=== PATIENT | male | born 1970 | race Caucasian/White ===

== ENCOUNTER 2020-01-15 19:24 | Emergency (ER) | payer SELFPAY ==
[2020-01-15 19:41] VITALS: BP 141/84
[2020-01-15 20:26] LABS: ABSOLUTE EOSINOPHILS # (AUTO) 0.2 10^3/uL (0.0-0.6); ABSOLUTE LYMPHOCYTES (AUTO) 1.7 10^3/uL (0.5-4.7); ABSOLUTE MONOCYTES (AUTO) 0.5 10^3/uL (0.1-1.4); ABSOLUTE NEUT (AUTO) 3.1 10^3/uL (1.7-8.2); BASOPHILS % (AUTO) 0.5 % (0-2); EOSINOPHILS % (AUTO) 2.9 % (0-6); HEMATOCRIT 42.2 % (37.9-51.0); HEMOGLOBIN 14.7 g/dL (13.5-17.0); LYMPHOCYTES % (AUTO) 30.7 % (13-45); MEAN CORPUSCULAR HEMOGLOBIN 32.6 pg (27.0-33.4); MEAN CORPUSCULAR HGB CONC 34.9 g/dL (32.0-36.0); MEAN CORPUSCULAR VOLUME 94 fl (80-97); MONOCYTES % (AUTO) 9.3 % (3-13); RED BLOOD COUNT 4.51 10^6/uL (4.35-5.55); RED CELL DISTRIBUTION WIDTH 14.8 % (11.5-14.0); SEGMENTED NEUTROPHILS % (AUTO) 56.6 % (42-78); TOTAL CELLS COUNTED % (AUTO) 100 %; WHITE BLOOD COUNT 5.5 10^3/uL (4.0-10.5)
[2020-01-15 20:43] LABS: ALBUMIN 4.5 g/dL (3.5-5.0); ALKALINE PHOSPHATASE 113 U/L (38-126); ANION GAP 11 (5-19); ASPARTATE AMINO TRANSFERASE 48 U/L (17-59); BILIRUBIN,TOTAL 0.5 mg/dL (0.2-1.3); BLOOD UREA NITROGEN 9 mg/dL (7-20); CALCIUM 9.3 mg/dL (8.4-10.2); CARBON DIOXIDE 24 mmol/L (22-30); CHLORIDE 102 mmol/L (98-107); CREATINE KINASE 219 U/L (55-170); GLUCOSE 368 mg/dL (75-110); POTASSIUM 4.1 mmol/L (3.6-5.0); TOTAL PROTEIN 7.6 g/dL (6.3-8.2)
--- NOTE | 2020-01-15 20:49 | EKG REPORT ---
SEVERITY:- BORDERLINE ECG - SINUS TACHYCARDIA PROBABLE LEFT ATRIAL ABNORMALITY : Confirmed by: Janiya Arango 15-Jan-2020 20:48:07
[2020-01-15 20:53] LABS: PLATELET COUNT 90 10^3/uL (150-450)
--- NOTE | 2020-01-15 20:53 | RADIOLOGY REPORT (SQ) ---
CLINICAL INDICATION: chest pain. TECHNIQUE: A single portable AP view was obtained of the chest at 2030 hours. Additional repeat image COMPARISON: None. FINDINGS: The cardiomediastinal silhouette is normal. The lungs are grossly clear. No evidence of effusion or pneumothorax. Old posttraumatic change. IMPRESSION: No evidence of active intrathoracic disease.
[2020-01-15 20:55] LABS: CREATINE KINASE MB 4.75 ng/mL (<4.55)
[2020-01-15 20:57] LABS: TROPONIN I < 0.012 ng/mL
[2020-01-15] MEDS ORDERED: NORMAL SALINE 1000 ML 1,000 ML IV ONE (22:40)
--- NOTE | 2020-01-15 22:58 | ER Document Report ---
ED General - General Chief Complaint: Weakness Stated Complaint: NAUSEA/HEART FLUTTERING Time Seen by Provider: 01/15/20 21:34 Notes: 49-year-old male presenting today with generalized weakness and muscle aches for 1 month. States he excessively fatigued and stressed. States he has had a productive cough for about a week and a half. Has type 2 diabetes and he does not take any medications for this. Also notes he has had some left-sided chest discomfort that radiates down his arm. States that he broke a posterior upper left rib one month ago. Has concerns as he feels his heart is fluttering. No fevers, chills or headaches. No abdominal pain. Has no primary care or insurance. Believes his symptoms are related to his sugar levels. Has hx of htn and diabetes. - Related Data Allergies/Adverse Reactions: No Known Allergies Allergy (Unverified 01/15/20 21:14) Past Medical History - Social History Smoking Status: Current Every Day Smoker Chew tobacco use (# tins/day): No Frequency of alcohol use: Heavy Drug Abuse: Marijuana Family History: Reviewed & Not Pertinent Patient has homicidal ideation: No - Past Medical History Cardiac Medical History: Reports: Hx Hypertension Neurological Medical History: Reports: Hx Seizures Endocrine Medical History: Reports: Hx Diabetes Mellitus Type 1 Past Surgical History: Reports: Hx Appendectomy Review of Systems - Review of Systems Constitutional: See HPI EENT: No symptoms reported Cardiovascular: See HPI Respiratory: See HPI Gastrointestinal: See HPI Genitourinary: No symptoms reported Musculoskeletal: No symptoms reported Physical Exam - Vital signs Vitals: Temp Pulse Resp BP Pulse Ox 98.3 F 104 H 18 141/84 H 91 L 01/15/20 19:37 01/15/20 19:37 01/15/20 19:37 01/15/20 19:37 01/15/20 19:37 Interpretation: Tachycardic - Notes Notes: Was informed by the nurse that patient is not interested in leaving [facility]. I discussed with patient at length my recommendations for continued medical work- up based on his symptoms and that the initial test did not provide good insight as to the cause of his symptoms. Course - Re-evaluation Re-evalutation: 01/15/20 22:58 Was informed by the nurse that patient now wants to leave [facility]. I had an in- depth conversation with the patient that we do not know the cause of his weakness, muscle aches, cough and chest pain based upon the preliminary labs and studies performed and that I would recommend and do advised that he has an additional work-up so that we can figure out the cause of his symptoms. Patient attributes his symptoms to stress or his sugar levels. Patient states that he does not want to be stuck by any needles or have any IVs and does not want to stay overnight in the hospital. States that he will just get a Gatorade to see if that will help with the symptoms. Advised against this due to his sugar levels. Discussed the risks of leaving AMA as we do not have a full work-up as to the cause of his symptoms. Patient still desires to leave AMA. Recommend patient follow-up with his primary care. Discussed him schedule an appointment with [facility] for [facility] and that he can return to the emergency department if he develops worsening or new symptoms. Patient was also referred for case management. Will have patient sign paperwork for AMA. - Vital Signs Vital signs: Temp Pulse Resp BP Pulse Ox 98.3 F 104 H 18 141/84 H 91 L 01/15/20 19:46 01/15/20 19:37 01/15/20 19:37 01/15/20 19:37 01/15/20 19:37 - Laboratory Result Diagrams: 01/15/20 20:10 01/15/20 20:10 Laboratory results interpreted by me: 01/15/20 01/15/20 01/15/20 20:10 20:10 20:10 RDW 14.8 H Plt Count 90 L Sodium 136.5 L Glucose 368 H Creatine Kinase 219 H CK-MB (CK-2) 4.75 H Discharge - Discharge Clinical Impression: Weakness Chest pain Qualifiers: Chest pain type: unspecified Qualified Code(s): R07.9 - Chest pain, unspecified Disposition: AGAINST MEDICAL ADVICE Additional Instructions: You have not completed your medical work up. We are uncertain as to the cause of your symptoms and additional work up is recommended. Please follow up with a pcm or with the [facility]. You may return to the ER if you have worsening symptoms or development of new symptoms.
[2020-01-15 23:15] LABS: FREE T3 3.99 pg/mL (2.77-5.27)
[2020-01-15 23:29] LABS: THYROID STIMULATING HORMONE 1.13 uIU/mL (0.47-4.68)
== END 2020-01-15 23:02 | disposition left against medical advice (07) ==
LOC: ER 19:24
DX: R53.1 Weakness (principal); R07.9 Chest pain, unspecified; R11.0 Nausea; M79.10 Myalgia, unspecified site; R53.83 Other fatigue; F17.200 Nicotine dependence, unspecified, uncomplicated; I10 Essential (primary) hypertension; E10.9 Type 1 diabetes mellitus without complications
CPT/HCPCS: 36415; 71045; 80053; 82550; 82553; 83735; 84443; 84481; 84484; 85025; 93005; 93010; 99285

== ENCOUNTER 2020-02-24 09:42 | Emergency (ER) | payer SELFPAY ==
[2020-02-24] MEDS ORDERED: ACETAMINOPHEN 325 MG TABLET PO ONE ×2 (10:24→18:53)
[2020-02-24 10:30] LABS: HEMATOCRIT 31.5 % (37.9-51.0); MEAN CORPUSCULAR HEMOGLOBIN 32.7 pg (27.0-33.4); MEAN CORPUSCULAR HGB CONC 35.1 g/dL (32.0-36.0); MEAN CORPUSCULAR VOLUME 93 fl (80-97); RED BLOOD COUNT 3.38 10^6/uL (4.35-5.55); RED CELL DISTRIBUTION WIDTH 13.7 % (11.5-14.0); WHITE BLOOD COUNT 10.3 10^3/uL (4.0-10.5)
[2020-02-24 10:46] LABS: ALBUMIN 3.5 g/dL (3.5-5.0); ALKALINE PHOSPHATASE 83 U/L (38-126); ANION GAP 15 (5-19); ASPARTATE AMINO TRANSFERASE 45 U/L (17-59); BILIRUBIN,DIRECT 0.2 mg/dL (0.0-0.4); BILIRUBIN,TOTAL 1.1 mg/dL (0.2-1.3); BLOOD UREA NITROGEN 12 mg/dL (7-20); CALCIUM 8.6 mg/dL (8.4-10.2); CARBON DIOXIDE 18 mmol/L (22-30); CHLORIDE 88 mmol/L (98-107); GLUCOSE 378 mg/dL (75-110); POTASSIUM 4.1 mmol/L (3.6-5.0); TOTAL PROTEIN 6.6 g/dL (6.3-8.2)
[2020-02-24 10:51] LABS: PLATELET COUNT 82 10^3/uL (150-450)
[2020-02-24 10:54] LABS: ABSOLUTE MONOCYTES # (MANUAL) 1.9 10^3/uL (0.1-1.4); BAND NEUTROPHILS % (MANUAL) 2 % (3-5); BASOPHILS % (MANUAL) 0 % (0-2); EOSINOPHILS % (MANUAL) 0 % (0-6); LYMPHOCYTES % (MANUAL) 0 % (13-45); MONOCYTES % (MANUAL) 18 % (3-13); PLATELET COMMENT DECREASED; RBC MORPHOLOGY COMMENT NORMO-CYTIC/CHROMIC; SEGMENTED NEUTROPHILS % (MAN) 80 % (42-78); TOTAL CELLS COUNTED 100
[2020-02-24] MEDS ORDERED: NORMAL SALINE 1000 ML 1,000 ML IV ONE ×3 (11:00→19:19)
[2020-02-24 11:02] LABS: APPEARANCE,URINE CLEAR; BILIRUBIN,URINE NEGATIVE (NEGATIVE); COLOR,URINE YELLOW; GLUCOSE, URINE >=500 mg/dL (NEGATIVE); KETONES,URINE 20 mg/dL (NEGATIVE); LEUKOCYTE ESTERASE,URINE NEGATIVE (NEGATIVE); NITRITE,URINE NEGATIVE (NEGATIVE); PROTEIN,URINE 100 mg/dL (NEGATIVE); URINE SPECIFIC GRAVITY 1.027
--- NOTE | 2020-02-24 14:04 | ER Document Report ---
ED General - General Chief Complaint: Leg Pain Stated Complaint: RIGHT LEG PAIN Time Seen by Provider: 02/24/20 12:59 Primary Care Provider: [facility] [Provider Group] - Follow up tomorrow [facility] [Provider Group] - Follow up as needed [facility] [Provider Group] - Follow up as needed [facility] [place] [facility] [Provider Group] - Follow up as needed [facility] [Provider Group] - Follow up tomorrow Mode of Arrival: Wheelchair Information source: Patient Notes: Patient presents after stepping in a hole 3 days ago. Patient complains of right ankle and right lower leg pain since the fall. Patient also states that he was jogging at nighttime 10 days ago and tripped over a trailer injuring his left shoulder and lower back. Patient states he had been drinking alcohol during that fall. TRAVEL OUTSIDE OF THE [place] IN LAST 30 DAYS: No - HPI Onset: Other - 3 days ago stepped in a hole, 10 days ago fell in yard Onset/Duration: Persistent Quality of pain: Achy Pain Level: 4 Associated symptoms: Leg swelling. denies: Chest pain, Nonproductive cough, Productive cough, Nausea, Shortness of breath Exacerbated by: Movement, Walking Relieved by: Denies Similar symptoms previously: No Recently seen / treated by doctor: No - Related Data Allergies/Adverse Reactions: No Known Allergies Allergy (Unverified 01/24/20 15:03) Past Medical History - General Information source: Patient - Social History Smoking Status: Former Smoker Frequency of alcohol use: Occasional Drug Abuse: Marijuana Occupation: None Lives with: Family Family History: Reviewed & Not Pertinent - Past Medical History Cardiac Medical History: Reports: Hx Hypertension Neurological Medical History: Reports: Hx Seizures Endocrine Medical History: Reports: Hx Diabetes Mellitus Type 2 Renal/ Medical History: Denies: Hx Peritoneal Dialysis Past Surgical History: Reports: Hx Appendectomy Review of Systems - Review of Systems Constitutional: No symptoms reported. denies: Recent illness EENT: No symptoms reported Cardiovascular: No symptoms reported. denies: Chest pain Respiratory: No symptoms reported. denies: Cough, Short of breath Gastrointestinal: No symptoms reported. denies: Abdominal pain, Diarrhea, Nausea, Vomiting Genitourinary: No symptoms reported. denies: Dysuria Male Genitourinary: No symptoms reported Musculoskeletal: Back pain, Joint pain - Right ankle, left shoulder Skin: Change in color - Bruise to right leg Hematologic/Lymphatic: No symptoms reported Neurological/Psychological: No symptoms reported Physical Exam - Vital signs Vitals: Temp Pulse Resp BP Pulse Ox 101 F H 124 H 20 152/90 H 95 02/24/20 09:48 02/24/20 09:48 02/24/20 09:48 02/24/20 09:48 02/24/20 09:48 - General General appearance: Appears well, Alert In distress: None - HEENT Head: Normocephalic, Atraumatic Eyes: Normal Conjunctiva: Normal Nasal: Normal Mouth/Lips: Normal Mucous membranes: Normal Neck: Normal, Supple. No: Lymphadenopathy - Respiratory Respiratory status: No respiratory distress Chest status: Nontender Breath sounds: Normal. No: Rales, Rhonchi, Stridor, Wheezing Chest palpation: Normal - Cardiovascular Rhythm: Regular Heart sounds: S1 appreciated, S2 appreciated Murmur: No - Abdominal Inspection: Normal Distension: No distension Bowel sounds: Normal Tenderness: Nontender Organomegaly: No organomegaly - Back Back: Tender - Lower lumbar paraspinal tenderness. No: Deformity/step-off, CVA tenderness, Vertebra tenderness - Extremities General upper extremity: Tender - Left shoulder joint tenderness General lower extremity: Tender - Right ankle and lower leg pain Shoulder: Tender - Left shoulder. No: Deformity, Dislocation, Ecchymosis, Instability, Laceration, Limited ROM Arm: Normal, Nontender Elbow: Normal, Nontender Forearm: Normal, Nontender Wrist: Normal, Nontender Knee: Normal, Nontender Ankle: Tender - Tenderness to bilateral malleolar area of right ankle with 3+ edema, Ecchymosis, Edema, Limited ROM, Unable to bear weight. No: Laceration Foot: Nontender, Edema - Neurological Neuro grossly intact: Yes Cognition: Normal Sven Coma Scale Eye Opening: Spontaneous [place] Coma Scale Verbal: Oriented Sven Coma Scale Motor: Obeys Commands [place] Coma Scale Total: 15 - Psychological Associated symptoms: Normal affect, Normal mood - Skin Skin Temperature: Warm Skin Moisture: Dry Skin Color: Ecchymosis - Right lower leg right ankle Course - Re-evaluation Re-evalutation: 02/24/20 14:03 Review of patient's initial vitals demonstrates fever and tachycardia, patient was given Tylenol per nursing staff. 02/24/20 18:44 Patient with muscular skeletal complaints with only chronic degenerative changes noted to the lumbar spine and left shoulder. Patient without any fracture or dislocation. Patient does have some erythema to the right ankle joint with some swelling. Patient without any leukocytosis. Patient does have diabetes and has been noncompliant with treatment. Patient does not appear to be acidotic at this time. Dr. Corral consulted and evaluated patient. Dr. Corral feels that patient has a cellulitis to the right ankle and does not have concerns about any septic arthritis at this time. Advises giving patient a dose of Rocephin as well as vancomycin IV and discharging patient home on Keflex and Bactrim. Agrees with plan to COVID test patient prior to discharge. 02/24/20 21:12 Patient reports feeling better at this time. Vital signs improved. Patient nontoxic in appearance. Discussed importance of eating a diabetic diet and being compliant with his medications. Discussed worsening signs or symptoms lázaro t patient should return immediately for. The patient was evaluated during the global Covid 19 pandemic, and that diagnosis was suspected/considered upon their initial presentation. Their evaluation, treatment and testing was consistent with current guidelines for patients who present with complaints or symptoms that may be related to Covid 19. - Vital Signs Vital signs: Temp Pulse Resp BP Pulse Ox 98.3 F 111 H 20 146/69 H 97 02/24/20 18:43 02/24/20 18:43 02/24/20 18:43 02/24/20 18:43 02/24/20 18:43 - Laboratory Result Diagrams: 02/24/20 10:03 02/24/20 10:03 Laboratory results interpreted by me: 02/24/20 02/24/20 02/24/20 10:03 10:03 10:35 RBC 3.38 L Hgb 11.0 L Hct 31.5 L Plt Count 82 L Seg Neuts % (Manual) 80 H Band Neutrophils % 2 L Lymphocytes % (Manual) 0 L Monocytes % (Manual) 18 H Abs Neuts (Manual) 8.4 H Abs Lymphs (Manual) 0.0 L Abs Monocytes (Manual) 1.9 H ESR VBG pCO2 VBG HCO3 Sodium 121.2 L Chloride 88 L Carbon Dioxide 18 L Glucose 378 H POC Glucose Uric Acid C-Reactive Protein Urine Protein 100 H Urine Glucose (UA) >=500 H Urine Ketones 20 H Urine Blood MODERATE H Urine Urobilinogen 2.0 H 02/24/20 02/24/20 02/24/20 14:28 17:00 17:00 RBC Hgb Hct Plt Count Seg Neuts % (Manual) Band Neutrophils % Lymphocytes % (Manual) Monocytes % (Manual) Abs Neuts (Manual) Abs Lymphs (Manual) Abs Monocytes (Manual) ESR 115 H VBG pCO2 30.2 L VBG HCO3 18.2 L Sodium Chloride Carbon Dioxide Glucose POC Glucose Uric Acid 1.6 L C-Reactive Protein 260.7 H Urine Protein Urine Glucose (UA) Urine Ketones Urine Blood Urine Urobilinogen 02/24/20 18:48 RBC Hgb Hct Plt Count Seg Neuts % (Manual) Band Neutrophils % Lymphocytes % (Manual) Monocytes % (Manual) Abs Neuts (Manual) Abs Lymphs (Manual) Abs Monocytes (Manual) ESR VBG pCO2 VBG HCO3 Sodium Chloride Carbon Dioxide Glucose POC Glucose 213 H Uric Acid C-Reactive Protein Urine Protein Urine Glucose (UA) Urine Ketones Urine Blood Urine Urobilinogen 02/24/20 18:47 Labs- All tests 24 hr 02/24/20 02/24/20 02/24/20 10:03 10:03 10:03 WBC 10.3 RBC 3.38 L Hgb 11.0 L Hct 31.5 L MCV 93 MCH 32.7 MCHC 35.1 RDW 13.7 Plt Count 82 L Lymph % (Auto) Not Reportable [place] % (Auto) Not Reportable Eos % (Auto) Not Reportable Baso % (Auto) Not Reportable Absolute Neuts (auto) Not Reportable Absolute Lymphs (auto) Not Reportable Absolute Monos (auto) Not Reportable Absolute Eos (auto) Not Reportable Absolute Basos (auto) Not Reportable Total Counted 100 Seg Neutrophils % Not Reportable Seg Neuts % (Manual) 80 H Band Neutrophils % 2 L Lymphocytes % (Manual) 0 L Monocytes % (Manual) 18 H Eosinophils % (Manual) 0 Basophils % (Manual) 0 Abs Neuts (Manual) 8.4 H Abs Lymphs (Manual) 0.0 L Abs Monocytes (Manual) 1.9 H Absolute Eos (Manual) 0.0 Abs Basophils (Manual) 0.0 Platelet Comment DECREASED RBC Morph Comment NORMO-CYTIC/CHROMIC ESR PT 14.6 INR 1.13 VBG pH VBG pCO2 VBG HCO3 VBG Base Excess Sodium 121.2 L Potassium 4.1 Chloride 88 L Carbon Dioxide 18 L Anion Gap 15 BUN 12 Creatinine 0.57 Est GFR ( Amer) > 60 Est GFR (MDRD) Non-Af > 60 Glucose 378 H Lactic Acid Uric Acid Calcium 8.6 Total Bilirubin 1.1 Direct Bilirubin 0.2 Neonat Total Bilirubin Not Reportable Neonat Direct Bilirubin Not Reportable Neonat Indirect Bili Not Reportable AST 45 ALT 41 Alkaline Phosphatase 83 C-Reactive Protein Total Protein 6.6 Albumin 3.5 Urine Color Urine Appearance Urine pH Ur Specific [place] Urine Protein Urine Glucose (UA) Urine Ketones Urine Blood Urine Nitrite Urine Bilirubin Urine Urobilinogen Ur Leukocyte Esterase Urine WBC (Auto) Urine RBC (Auto) U Hyaline Cast (Auto) Squamous Epi Cells Auto Urine Mucus (Auto) Urine Ascorbic Acid 02/24/20 02/24/20 02/24/20 10:35 13:56 13:56 WBC RBC Hgb Hct MCV MCH MCHC RDW Plt Count Lymph % (Auto) [place] % (Auto) Eos % (Auto) Baso % (Auto) Absolute Neuts (auto) Absolute Lymphs (auto) Absolute Monos (auto) Absolute Eos (auto) Absolute Basos (auto) Total Counted Seg Neutrophils % Seg Neuts % (Manual) Band Neutrophils % Lymphocytes % (Manual) Monocytes % (Manual) Eosinophils % (Manual) Basophils % (Manual) Abs Neuts (Manual) Abs Lymphs (Manual) Abs Monocytes (Manual) Absolute Eos (Manual) Abs Basophils (Manual) Platelet Comment RBC Morph Comment ESR PT INR VBG pH Cancelled VBG pCO2 Cancelled VBG HCO3 Cancelled VBG Base Excess Cancelled Sodium Potassium Chloride Carbon Dioxide Anion Gap BUN Creatinine Est GFR ( Amer) Est GFR (MDRD) Non-Af Glucose Lactic Acid 1.6 Uric Acid Calcium Total Bilirubin Direct Bilirubin Neonat Total Bilirubin Neonat Direct Bilirubin Neonat Indirect Bili AST ALT Alkaline Phosphatase C-Reactive Protein Total Protein Albumin Urine Color YELLOW Urine Appearance CLEAR Urine pH 6.0 Ur Specific [place] 1.027 Urine Protein 100 H Urine Glucose (UA) >=500 H Urine Ketones 20 H Urine Blood MODERATE H Urine Nitrite NEGATIVE Urine Bilirubin NEGATIVE Urine Urobilinogen 2.0 H Ur Leukocyte Esterase NEGATIVE Urine WBC (Auto) 1 Urine RBC (Auto) 1 U Hyaline Cast (Auto) 1 Squamous Epi Cells Auto <1 Urine Mucus (Auto) RARE Urine Ascorbic Acid NEGATIVE 02/24/20 02/24/20 02/24/20 14:28 17:00 17:00 WBC RBC Hgb Hct MCV MCH MCHC RDW Plt Count Lymph % (Auto) [place] % (Auto) Eos % (Auto) Baso % (Auto) Absolute Neuts (auto) Absolute Lymphs (auto) Absolute Monos (auto) Absolute Eos (auto) Absolute Basos (auto) Total Counted Seg Neutrophils % Seg Neuts % (Manual) Band Neutrophils % Lymphocytes % (Manual) Monocytes % (Manual) Eosinophils % (Manual) Basophils % (Manual) Abs Neuts (Manual) Abs Lymphs (Manual) Abs Monocytes (Manual) Absolute Eos (Manual) Abs Basophils (Manual) Platelet Comment RBC Morph Comment ESR 115 H PT INR VBG pH 7.40 VBG pCO2 30.2 L VBG HCO3 18.2 L VBG Base Excess -5.6 Sodium Potassium Chloride Carbon Dioxide Anion Gap BUN Creatinine Est GFR ( Amer) Est GFR (MDRD) Non-Af Glucose Lactic Acid 1.0 Uric Acid Calcium Total Bilirubin Direct Bilirubin Neonat Total Bilirubin Neonat Direct Bilirubin Neonat Indirect Bili AST ALT Alkaline Phosphatase C-Reactive Protein Total Protein Albumin Urine Color Urine Appearance Urine pH Ur Specific [place] Urine Protein Urine Glucose (UA) Urine Ketones Urine Blood Urine Nitrite Urine Bilirubin Urine Urobilinogen Ur Leukocyte Esterase Urine WBC (Auto) Urine RBC (Auto) U Hyaline Cast (Auto) Squamous Epi Cells Auto Urine Mucus (Auto) Urine Ascorbic Acid 02/24/20 17:00 WBC RBC Hgb Hct MCV MCH MCHC RDW Plt Count Lymph % (Auto) [place] % (Auto) Eos % (Auto) Baso % (Auto) Absolute Neuts (auto) Absolute Lymphs (auto) Absolute Monos (auto) Absolute Eos (auto) Absolute Basos (auto) Total Counted Seg Neutrophils % Seg Neuts % (Manual) Band Neutrophils % Lymphocytes % (Manual) Monocytes % (Manual) Eosinophils % (Manual) Basophils % (Manual) Abs Neuts (Manual) Abs Lymphs (Manual) Abs Monocytes (Manual) Absolute Eos (Manual) Abs Basophils (Manual) Platelet Comment RBC Morph Comment ESR PT INR VBG pH VBG pCO2 VBG HCO3 VBG Base Excess Sodium Potassium Chloride Carbon Dioxide Anion Gap BUN Creatinine Est GFR ( Amer) Est GFR (MDRD) Non-Af Glucose Lactic Acid Uric Acid 1.6 L Calcium Total Bilirubin Direct Bilirubin Neonat Total Bilirubin Neonat Direct Bilirubin Neonat Indirect Bili AST ALT Alkaline Phosphatase C-Reactive Protein 260.7 H Total Protein Albumin Urine Color Urine Appearance Urine pH Ur Specific [place] Urine Protein Urine Glucose (UA) Urine Ketones Urine Blood Urine Nitrite Urine Bilirubin Urine Urobilinogen Ur Leukocyte Esterase Urine WBC (Auto) Urine RBC (Auto) U Hyaline Cast (Auto) Squamous Epi Cells Auto Urine Mucus (Auto) Urine Ascorbic Acid - Diagnostic Test Radiology reviewed: Image reviewed, Reports reviewed Discharge - Discharge Clinical Impression: Encounter for screening laboratory testing for COVID-19 virus Diabetes Qualifiers: Diabetes mellitus type: type 2 Diabetes mellitus assistant terminal manager insulin use: without fpc use Diabetes mellitus complication status: with other specified complication Qualified Code(s): E11.69 - Type 2 diabetes mellitus with other specified complication Cellulitis Qualifiers: Site of cellulitis: extremity Site of cellulitis of extremity: lower extremity Laterality: right Qualified Code(s): L03.115 - Cellulitis of right lower limb Fever Qualifiers: Fever type: unspecified Qualified Code(s): R50.9 - Fever, unspecified Low back pain Qualifiers: Chronicity: unspecified Back pain laterality: bilateral Sciatica presence: without sciatica Qualified Code(s): M54.5 - Low back pain Left shoulder pain Qualifiers: Chronicity: chronic Qualified Code(s): M25.512 - Pain in left shoulder Right ankle sprain Qualifiers: Encounter type: initial encounter Involved ligament of ankle: unspecified ligament Qualified Code(s): S93.401A - Sprain of unspecified ligament of right ankle, initial encounter Condition: Stable Disposition: HOME, SELF-CARE Instructions: COVID-19 Guidance for Persons Under Investigation, Ankle Stirrup Splint ([facility]), Cellulitis ([facility]), Cephalexin ([facility]), Use of Crutches ([facility]), Diabetes ([facility]), Fever ([facility]), Low Back Pain ([facility]), Shoulder Injury ([facility]), Sprained Ankle ([facility]), Trimethoprim-Sulfa ([facility]) Additional Instructions: Return immediately for any new or worsening symptoms: Worsening pain, persistent fever, lack of improvement or any concerning new symptoms Followup with your primary care provider, call tomorrow to make a followup appointment Follow-up with orthopedics for further evaluation, call tomorrow to make an appointment Home quarantine as per instructions Prescriptions: Sulfamethoxazole/Trimethoprim [Bactrim Ds Tablet] 1 each PO BID #20 tablet Metformin HCl [Glucophage 500 mg Tablet] 500 mg PO BID #60 tablet Cephalexin Monohydrate [Keflex 500 mg Capsule] 500 mg PO Q6H 7 Days #28 capsule Hydrocodone/Acetaminophen [[place] 5-325 mg Tablet] 1 tab PO Q6 PRN #6 tablet PRN Reason: Walker [Ultra-Light Rollator] 1 each MC DAILY PRN #1 each PRN Reason: Referrals: [facility] [Provider Group] - Follow up tomorrow [facility] [place] [Provider Group] - Follow up as needed [facility] [Provider Group] - Follow up tomorrow [facility] [Provider Group] - Follow up as needed [facility] [Provider Group] - Follow up as needed
[2020-02-24 14:24] LABS: INTERNATIONAL RATION (INR) 1.13; PROTHROMBIN TIME 14.6 SEC (11.4-15.4)
[2020-02-24 14:37] LABS: VENOUS BLOOD BASE EXCESS -5.6 mmol/L; VENOUS BLOOD HCO3 18.2 mmol/L (20-32); VENOUS BLOOD PCO2 30.2 mmHg (35-63); VENOUS BLOOD PH 7.4 (7.30-7.42)
--- NOTE | 2020-02-24 15:22 | RADIOLOGY REPORT (SQ) ---
EXAM DESCRIPTION: CHEST SINGLE VIEW IMAGES COMPLETED DATE/TIME: 02/24/2020 3:07 pm REASON FOR STUDY: fall, fever COMPARISON: 01/15/2020 EXAM PARAMETERS: NUMBER OF VIEWS: One view. TECHNIQUE: Single frontal radiographic view of the chest acquired. RADIATION DOSE: NA LIMITATIONS: None. FINDINGS: LUNGS AND PLEURA: No opacities, masses or pneumothorax. No pleural effusion. MEDIASTINUM AND HILAR STRUCTURES: No masses. Contour normal. HEART AND VASCULAR STRUCTURES: Heart normal in size. Normal vasculature. BONES: No acute findings. HARDWARE: None in the chest. OTHER: No other significant finding. IMPRESSION: NO ACUTE RADIOGRAPHIC FINDING IN THE CHEST. TECHNICAL DOCUMENTATION: JOB ID: [id number] 2010 [employer]- All Rights Reserved Reading location - IP/workstation name: [email or web address]
--- NOTE | 2020-02-24 15:23 | RADIOLOGY REPORT (SQ) ---
EXAM DESCRIPTION: FOOT RIGHT COMPLETE IMAGES COMPLETED DATE/TIME: 02/24/2020 3:07 pm REASON FOR STUDY: fall COMPARISON: None. NUMBER OF VIEWS: Three views. TECHNIQUE: AP, lateral and oblique radiographic images acquired of the right foot. LIMITATIONS: None. FINDINGS: MINERALIZATION: Normal. BONES: No acute fracture or dislocation. No worrisome bone lesions. JOINTS: No effusions. SOFT TISSUES: No soft tissue swelling. No foreign body. OTHER: No other significant finding. IMPRESSION: NEGATIVE STUDY OF THE RIGHT FOOT. NO RADIOGRAPHIC EVIDENCE OF ACUTE INJURY. TECHNICAL DOCUMENTATION: JOB ID: [id number] 2010 [employer]- All Rights Reserved Reading location - IP/workstation name: [email or web address]
--- NOTE | 2020-02-24 15:23 | RADIOLOGY REPORT (SQ) ---
EXAM DESCRIPTION: TIBIA FIBULA RIGHT IMAGES COMPLETED DATE/TIME: 02/24/2020 3:07 pm REASON FOR STUDY: fall COMPARISON: None. NUMBER OF VIEWS: Two views. TECHNIQUE: Two radiographic images acquired of the right tibia and fibula to include the knee and an kle in at least one projection. LIMITATIONS: None. FINDINGS: MINERALIZATION: Normal. BONES: No acute fracture or dislocation. No worrisome bone lesions. SOFT TISSUES: No obvious swelling or foreign body. OTHER: No other significant finding. IMPRESSION: NEGATIVE STUDY OF THE RIGHT TIBIA AND FIBULA. NO RADIOGRAPHIC EVIDENCE OF ACUTE INJURY. TECHNICAL DOCUMENTATION: JOB ID: [id number] 2010 [employer]- All Rights Reserved Reading location - IP/workstation name: [email or web address]
--- NOTE | 2020-02-24 15:25 | RADIOLOGY REPORT (SQ) ---
EXAM DESCRIPTION: ANKLE RIGHT COMPLETE IMAGES COMPLETED DATE/TIME: 02/24/2020 3:07 pm REASON FOR STUDY: fall COMPARISON: None. NUMBER OF VIEWS: Three views. TECHNIQUE: AP, lateral, and oblique radiographic images acquired of the right ankle. LIMITATIONS: None. FINDINGS: MINERALIZATION: Normal. BONES: No acute fracture or dislocation. No worrisome bone lesions. JOINTS: No effusions. SOFT TISSUES: Mild soft tissue swelling. OTHER: No other significant finding. IMPRESSION: Mild soft tissue swelling. No fracture. TECHNICAL DOCUMENTATION: JOB ID: [id number] 2010 [employer]- All Rights Reserved Reading location - IP/workstation name: [email or web address]
--- NOTE | 2020-02-24 15:26 | RADIOLOGY REPORT (SQ) ---
EXAM DESCRIPTION: L SPINE WHOLE IMAGES COMPLETED DATE/TIME: 02/24/2020 3:07 pm REASON FOR STUDY: fall COMPARISON: None. NUMBER OF VIEWS: Five views including obliques. TECHNIQUE: AP, lateral, oblique, and sacral radiographic images acquired of the lumbar spine. LIMITATIONS: None. FINDINGS: MINERALIZATION: Normal. SEGMENTATION: Normal. No transitional anatomy. ALIGNMENT: Normal. VERTEBRAE: Maintained height. No fracture or worrisome bone lesion. DISCS: There is narrowing of the L4-5 disc space. Marginal osteophytes in L3 and L4. POSTERIOR ELEMENTS: Pedicles and facets are intact. No pars defect or posterior arch defects. HARDWARE: None in the spine. PARASPINAL SOFT TISSUES: Normal. PELVIS: Intact as visualized. No fractures or worrisome bone lesions. SI joints intact. OTHER: No other significant finding. IMPRESSION: Degenerative disc disease. Mild spondylosis. TECHNICAL DOCUMENTATION: JOB ID: [id number] 2010 [employer]- All Rights Reserved Reading location - IP/workstation name: [email or web address]
--- NOTE | 2020-02-24 15:28 | RADIOLOGY REPORT (SQ) ---
EXAM DESCRIPTION: SHOULDER LEFT 2 OR MORE VIEWS IMAGES COMPLETED DATE/TIME: 02/24/2020 3:07 pm REASON FOR STUDY: fall COMPARISON: None. NUMBER OF VIEWS: Three views. TECHNIQUE: Internal rotation, external rotation, and Y view images acquired of the left shoulder. LIMITATIONS: None. FINDINGS: MINERALIZATION: Normal. BONES: No acute fracture. No worrisome bone lesions. JOINTS: No dislocation. VISUALIZED LUNGS AND RIBS: No pneumothorax. No rib fracture. SOFT TISSUES: No radiopaque foreign body. OTHER: There is narrowing of the subacromial space is with elevation of the humeral head. IMPRESSION: Narrowing of the subacromial space suggesting longstanding rotator cuff disease. TECHNICAL DOCUMENTATION: JOB ID: [id number] 2010 [employer] All Rights Reserved Reading location - IP/workstation name: CON
[2020-02-24] MEDS ORDERED: IBUPROFEN 800 MG TABLET PO ONE (15:51)
[2020-02-24] MEDS ORDERED: RINGERS SOLUTION,LACTATED 1,000 ML IV ONE (15:52)
[2020-02-24 17:41] LABS: URIC ACID 1.6 mg/dL (3.5-8.5)
[2020-02-24 17:52] LABS: C-REACTIVE PROTEIN 260.7 mg/L (<10.0)
--- NOTE | 2020-02-24 18:25 | EKG REPORT ---
SEVERITY:- OTHERWISE NORMAL ECG - SINUS TACHYCARDIA : Confirmed by: Harley Weaver MD 24-Feb-2020 18:23:48
[2020-02-24] MEDS ORDERED: CEPHALEXIN 500 MG CAPSULE PO ONE (18:37)
[2020-02-24] MEDS ORDERED: CEFTRIAXONE 1 GM/D5W RTU 1 GM/50 ML RTUPB IV ONE (18:43)
[2020-02-24] MEDS ORDERED: VANCOMYCIN HCL INJ 1000 MG VIAL IV ONE (18:43)
[2020-02-24 21:42] VITALS: BP 138/88
== END 2020-02-24 21:41 | disposition home or self-care (01) ==
LOC: ER 09:42
DX: S93.401A Sprain of unspecified ligament of right ankle, initial encounter (principal); W19.XXXA Unspecified fall, initial encounter; M54.5 Low back pain; M25.512 Pain in left shoulder; W01.0XXA Fall on same level from slipping, tripping and stumbling without subsequent striking against object, initial encounter; Y93.02 Activity, running; L03.115 Cellulitis of right lower limb; E11.8 Type 2 diabetes mellitus with unspecified complications; Z91.19 Patient's noncompliance with other medical treatment and regimen; M47.816 Spondylosis without myelopathy or radiculopathy, lumbar region; F12.10 Cannabis abuse, uncomplicated; I10 Essential (primary) hypertension; R50.9 Fever, unspecified; R00.0 Tachycardia, unspecified; Z87.891 Personal history of nicotine dependence; Z20.828 Contact with and (suspected) exposure to other viral communicable diseases
CPT/HCPCS: 93005; 99284; 96361; 96365; 36415; 87040; 82962; 83605; 84550; 85025; 85652; 85610; 87635; 86140; 87077; 80053; 81001; 87186; 82803; 87150 ×26; 73610; 71045; 73630; 72110; 73030; 73590; 93010; J7030; J7120; J3370; J0696; C9803; 96367